=== PATIENT | female | born 1975 | race Caucasian/White ===

== ENCOUNTER 2016-08-16 20:33 | Emergency (ER) | payer OTHER | END 2016-08-16 22:43 | disposition home or self-care (01) | DX: R10.32 Left lower quadrant pain (principal); R10.2 Pelvic and perineal pain; D72.829 Elevated white blood cell count, unspecified; I10 Essential (primary) hypertension; F17.200 Nicotine dependence, unspecified, uncomplicated ==

== ENCOUNTER 2017-03-11 17:37 | Emergency (ER) | payer OTHER ==
--- NOTE | 2017-03-11 18:04 | ED Physician Documentation ---
PD HPI ABD PAIN - Stated complaint Stated Complaint: SHARP ABD PX;N/V/F - Chief complaint Chief Complaint: Abd Pain - History obtained from History obtained from: Patient - History of Present Illness Timing - onset: Other (She started to feel nauseous with upset stomach last night, cramping and bloating sensation. She has vomited twice without blood. She has had chills but no fever. She has had a lot of gas from below and feeling like she needs to have a bowel movement but never really does. No sick contacts or recent travel.) Review of Systems Ten Systems: 10 systems reviewed and negative Constitutional: reports: Chills. denies: Fever, Fatigue Nose: denies: Rhinorrhea / runny nose, Congestion Cardiac: denies: Chest pain / pressure, Palpitations Respiratory: reports: Cough. denies: Dyspnea GI: reports: Abdominal Pain, Abdominal Swelling, Nausea, Vomiting. 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 - Present Medications Home Medications: Ambulatory Orders Medication Instructions Recorded Confirmed Lisinopril 10 mg PO DAILY 04/19/16 03/11/17 amLODIPine [Norvasc] 5 mg PO ONCE 04/19/16 03/11/17 Metformin HCl [Metformin HCl ER] 500 mg PO 08/16/16 - Allergies Allergies/Adverse Reactions: Allergies Allergy/AdvReac Type Severity Reaction Status Date / Time No Known Drug Allergies Allergy Verified 03/11/17 17:50 - Social History Does the pt smoke?: Yes Smoking Status: Current every day smoker Does the pt drink ETOH?: No Does the pt have substance abuse?: No - POLST Patient has POLST: No PD ED PE NORMAL - Vitals Vital signs reviewed: Yes - General General: Alert and oriented X 3, No acute distress - HEENT HEENT: PERRL, EOMI, Pharynx benign - Neck Neck: Supple, no meningeal sign, No bony TTP - Cardiac Cardiac: RRR, No murmur - Respiratory Respiratory: No respiratory distress, Clear bilaterally - Abdomen Abdomen: Other (Hyperactive bowel tones with mild diffuse tenderness, no focal tenderness or surgical signs.) - Back Back: No CVA TTP, No spinal TTP - Derm Derm: Normal color, Warm and dry - Extremities Extremities: No edema, No calf tenderness / cord - Neuro Neuro: Alert and oriented X 3, Normal speech - Psych Psych: Normal mood, Normal affect Results - Vitals Vitals: Vital Signs - 24 hr 03/11/17 03/11/17 17:46 20:03 Temperature 36.9 C Heart Rate 99 74 Respiratory 16 18 Rate Blood Pressure 143/91 H 109/70 O2 Saturation 96 100 Oxygen O2 Source Room air - Labs Labs: Laboratory Tests 03/11/17 03/11/17 03/11/17 17:55 18:13 18:13 WBC 10.5 RBC 4.60 Hgb 13.7 Hct 40.7 MCV 88.5 MCH 29.8 MCHC 33.7 RDW 13.9 Plt Count 295 MPV 6.6 L Neut # 4.6 Lymph # 4.4 H [place] # 1.2 H Eos # 0.2 Baso # 0.1 Absolute Nucleated RBC 0.00 Nucleated RBC % 0.0 Sodium 138 Potassium 3.7 Chloride 104 Carbon Dioxide 26 Anion Gap 8.0 BUN 14 Creatinine 0.6 Estimated GFR (MDRD) 111 Glucose 101 H Calcium 9.2 Total Bilirubin 0.2 AST 22 ALT 27 Alkaline Phosphatase 66 Total Protein 7.3 Albumin 4.1 Globulin 3.2 Albumin/Globulin Ratio 1.3 Lipase 25 Urine Color YELLOW Urine Clarity CLEAR Urine pH 6.0 Ur Specific [place] 1.020 Urine Protein NEGATIVE Urine Glucose (UA) NEGATIVE Urine Ketones NEGATIVE Urine Occult Blood MODERATE H Urine Nitrite NEGATIVE Urine Bilirubin NEGATIVE Urine Urobilinogen 0.2 (NORMAL) Ur Leukocyte Esterase NEGATIVE Urine RBC 6-10 H Urine WBC 0-3 Ur Squamous Epith Cells MANY Squamous H Urine Bacteria Rare Urine Casts 0-2 Hyaline Casts Ur Microscopic Review INDICATED Urine Culture Comments NOT INDICATED Urine HCG, Qual NEGATIVE - Rads (name of study) CT A/P Radiology: EMP read contemporaneously (Negative except for right ovarian cyst) PD MEDICAL DECISION MAKING - ED course ED course: 41-year-old woman with diffuse abdominal pain and bloating, seems more like gastroenteritis than anything else. After IV fluids and medications on recheck at 7 PM her exam really had not changed but her symptoms had not improved at all either. She declined more pain medication but we will go ahead and perform some imaging. The CAT scan was negative save for ovarian cysts, she does have PCO S. She remains nontender on reexamination prior to discharge. Departure - Departure Disposition: 01 Home, Self Care Clinical Impression: Abdominal pain Qualifiers: Abdominal location: generalized Qualified Code(s): R10.84 - Generalized abdominal pain Condition: Good Record reviewed to determine appropriate education?: Yes Instructions: ED Abdominal Pain Unkn Cause Comments: Return in 12-24 hours if not better, anytime if worse or if new symptoms especially fever develop. Discharge Date/Time: 03/11/17 20:21
[2017-03-11] MEDS: KETOROLAC 30 MG/ML VIAL IVP STA (18:07)
[2017-03-11] MEDS: HYOSCYAMINE SL 0.125 MG TABLET SL STA (18:07)
[2017-03-11] MEDS: SODIUM CHLORIDE 0.9% 1,000 ML IV ONE (18:08)
[2017-03-11] MEDS ORDERED: HYOSCYAMINE SL 0.125 MG TABLET SL ONE (18:10)
[2017-03-11] MEDS ORDERED: KETOROLAC 30 MG/ML VIAL ONE (18:10)
[2017-03-11 18:20] LABS: BASOPHILS # (AUTO) 0.1 10^3/uL (0.0-0.1); BASOPHILS % (AUTO) 0.6 %; EOSINOPHILS # (AUTO) 0.2 10^3/uL (0.0-0.7); EOSINOPHILS % (AUTO) 2.2 %; HCT - HEMATOCRIT 40.7 % (37.0-47.0); HGB - HEMOGLOBIN 13.7 g/dL (12.0-16.0); LYMPHOCYTES # (AUTO) 4.4 10^3/uL (1.5-3.5); LYMPHOCYTES % (AUTO) 42.3 %; MEAN CORPUSCULAR HEMOGLOBIN 29.8 pg (27.0-31.0); MEAN CORPUSCULAR HGB CONC 33.7 g/dL (32.0-36.0); MEAN CORPUSCULAR VOLUME 88.5 fL (81.0-99.0); MEAN PLATELET VOLUME 6.6 fL (7.9-10.8); MONOCYTES # (AUTO) 1.2 10^3/uL (0.0-1.0); NEUTROPHILS # (AUTO) 4.6 10^3/uL (1.5-6.6); NEUTROPHILS % (AUTO) 43.9 %; RED CELL DISTRIBUTION WIDTH 13.9 % (12.0-15.0); UNCORRECTED WHITE BLOOD COUNT 10.5 x10^3/uL; WHITE BLOOD COUNT 10.5 x10^3/uL (4.8-10.8)
[2017-03-11 18:23] LABS: BILIRUBIN,URINE NEGATIVE (NEGATIVE)
[2017-03-11 18:24] LABS: HCG UR QUAL NEGATIVE; UA w/ MICROSCOPIC CHARGE YES
[2017-03-11 18:30] LABS: ALBUMIN/GLOBULIN RATIO 1.3 (1.0-2.2); BILIRUBIN,TOTAL 0.2 mg/dL (0.2-1.0); CALCIUM 9.2 mg/dL (8.5-10.3); CREATININE 0.6 mg/dL (0.4-1.0); POTASSIUM 3.7 mmol/L (3.5-5.0); TOTAL PROTEIN 7.3 g/dL (6.7-8.2)
[2017-03-11 18:33] LABS: UR CULTURE IF IND NOT INDICATED; WBC,URINE 0-3 /HPF (0-5)
[2017-03-11] MEDS ORDERED: IOPAMIDOL-300 100 ML VIAL ONE (19:26)
[2017-03-11] MEDS: IOPAMIDOL-300 100 ML VIAL IVP ONE (19:32)
--- NOTE | 2017-03-11 19:58 | CT Preliminary Report ---
Exam: CT ABDOMEN/PELVIS W/ IMPRESSION: 1. No evidence of bowel obstruction, fluid collection or acute inflammatory process. 2. Right ovarian 3.6 cm cyst. [facility] SITE ID: [id number]
--- NOTE | 2017-03-11 20:01 | CT Report ---
EXAM: CT ABDOMEN AND PELVIS EXAM DATE: 03/11/2017 07:44 PM. CLINICAL HISTORY: IV only, diffuse abd pain. COMPARISONS: 08/16/2016 pelvic ultrasound. TECHNIQUE: Routine helical CT imaging was performed through the abdomen and pelvis. IV contrast: Isov ue 300 100mL. Enteric contrast: No. Reconstructions: Coronal and sagittal. In accordance with CT protocol optimization, one or more of the following dose reduction techniques w ere utilized for this exam: automated exposure control, adjustment of mA and/or KV based on patient s ize, or use of iterative reconstructive technique. FINDINGS: Lung Bases: Unremarkable. Liver: Normal. No masses. Gallbladder/Bile Ducts: The gallbladder has been removed. No biliary dilatation. Spleen: Normal. Pancreas: Normal. Adrenal Glands: Normal. Kidneys: There is a 5 mm left renal hypodensity most likely representing a cyst. No suspicious renal mass or hydronephrosis. Peritoneal Cavity/Bowel: Normal. No free fluid, free air or adenopathy. No masses or acute inflammato ry process. The appendix is well visualized and normal. Pelvic Organs: There is a 3.6 x 2.3 cm right ovarian cyst containing a thin central septation. Smalle r cysts noted in the left ovary. Vasculature: No aneurysms or other significant abnormality. Bones: No significant abnormality. Other: None. IMPRESSION: 1. No evidence of bowel obstruction, fluid collection or acute inflammatory process. 2. Right ovarian 3.6 cm cyst. [facility] Referring Provider Line: [phone] SITE ID: [id number]
[2017-03-11 20:04] VITALS: BP 109/70
[2017-03-11] MEDS: HYDROcod/ACET 5/325 Prepack 6 PO STA (20:18)
[2017-03-11] MEDS: DICYCLOMINE 10 MG CAPSULE PO STA (20:18)
[2017-03-11] MEDS: ONDANSETRON ODT 4 MG Prepack 2 TL STA (20:18)
[2017-03-11] MEDS ORDERED: HYDROcod/ACET 5/325 Prepack 6 PO ONE (20:19)
[2017-03-11] MEDS ORDERED: DICYCLOMINE 10 MG CAPSULE PO ONE (20:20)
[2017-03-11] MEDS ORDERED: ONDANSETRON ODT 4 MG Prepack 2 TL ONE (20:20)
== END 2017-03-11 20:21 | disposition home or self-care (01) ==
LOC: ED 17:37
DX: R10.84 Generalized abdominal pain (principal); I10 Essential (primary) hypertension; E28.2 Polycystic ovarian syndrome; F17.200 Nicotine dependence, unspecified, uncomplicated
CPT/HCPCS: 36415; 74177; 80053; 81001; 81003; 81025; 83690; 85025; 87086; 96361; 96374; 99283; 99284

== ENCOUNTER 2017-03-14 09:49 | Emergency (ER) | payer OTHER ==
[2017-03-14 10:47] LABS: BILIRUBIN,URINE NEGATIVE (NEGATIVE)
[2017-03-14 11:01] LABS: UR CULTURE IF IND NOT INDICATED; WBC,URINE 0-3 /HPF (0-5)
[2017-03-14 12:30] LABS: BASOPHILS # (AUTO) 0.1 10^3/uL (0.0-0.1); BASOPHILS % (AUTO) 0.8 %; EOSINOPHILS # (AUTO) 0.1 10^3/uL (0.0-0.7); EOSINOPHILS % (AUTO) 1.2 %; HCT - HEMATOCRIT 39.4 % (37.0-47.0); HGB - HEMOGLOBIN 13.1 g/dL (12.0-16.0); LYMPHOCYTES # (AUTO) 4.6 10^3/uL (1.5-3.5); LYMPHOCYTES % (AUTO) 40.1 %; MEAN CORPUSCULAR HEMOGLOBIN 29.2 pg (27.0-31.0); MEAN CORPUSCULAR HGB CONC 33.2 g/dL (32.0-36.0); MEAN CORPUSCULAR VOLUME 88.2 fL (81.0-99.0); MEAN PLATELET VOLUME 6.5 fL (7.9-10.8); MONOCYTES # (AUTO) 0.6 10^3/uL (0.0-1.0); MONOCYTES % (AUTO) 5.5 %; NEUTROPHILS % (AUTO) 52.4 %; NUCLEATED RED BLOOD CELLS AUTO 0.1 /100WBC; RED BLOOD COUNT 4.46 10^6/uL (4.20-5.40); RED CELL DISTRIBUTION WIDTH 14.1 % (12.0-15.0); UNCORRECTED WHITE BLOOD COUNT 11.4 x10^3/uL; WHITE BLOOD COUNT 11.4 x10^3/uL (4.8-10.8)
[2017-03-14] MEDS ORDERED: KETOROLAC 60 MG/2 ML VIAL IVP STA (12:39)
[2017-03-14] MEDS ORDERED: ACETAMINOPHEN 1,000 MG/100 ML 100 ML IV STA (12:39)
--- NOTE | 2017-03-14 12:41 | ED Physician Documentation ---
PD HPI ABD PAIN - Stated complaint Stated Complaint: ABD PX - Chief complaint Chief Complaint: Abd Pain - History obtained from History obtained from: Patient - History of Present Illness Timing - onset: How many days ago (4) Timing - duration: Days (4) Timing - details: Gradual onset Pain level max: 7 Pain level now: 7 Quality: Aching, Pain Location: LLQ Improved by: Other (nothing) Worsened by: Moving, Palpation Associated symptoms: Nausea, Constipation (states constipated since taking the pain medications.). No: Fever, Vomiting, Hematemesis, Diarrhea, Melena, Hematochezia, Dysuria, Hematuria, Vaginal bleeding, Vaginal dc Similar symptoms before: Diagnosis (R ovarian cyst dx 2 days ago.) Recently seen: Emergency Dept (2 days ago and dx with ovarian cyst) Review of Systems Constitutional: denies: Fever, Chills Ears: denies: Ear pain Nose: denies: Rhinorrhea / runny nose, Congestion Throat: denies: Sore throat Cardiac: denies: Chest pain / pressure Respiratory: denies: Cough GI: denies: Abdominal Pain, Nausea, Vomiting, Diarrhea Skin: denies: Rash Musculoskeletal: denies: Neck pain, Back pain Neurologic: denies: Headache PD PAST MEDICAL HISTORY - Past Medical History Past Medical History: Yes Cardiovascular: Hypertension Respiratory: None Neuro: None Endocrine/Autoimmune: None - Past Surgical History Past Surgical History: Yes 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 - Present Medications Home Medications: Ambulatory Orders Medication Instructions Recorded Confirmed Lisinopril 10 mg PO DAILY 04/19/16 03/14/17 amLODIPine [Norvasc] 5 mg PO ONCE 04/19/16 03/14/17 Metformin HCl [Metformin HCl ER] 500 mg PO DAILY 08/16/16 03/14/17 Hyoscyamine Sulfate [Levsin-Sl] 0.125 mg SL Q6H PRN #10 tab.subl 03/14/17 Magnesium Citrate 296 ml PO ONCE #1 solution 03/14/17 - Allergies Allergies/Adverse Reactions: Allergies Allergy/AdvReac Type Severity Reaction Status Date / Time No Known Drug Allergies Allergy Verified 03/11/17 17:50 - Social History Does the pt smoke?: Yes Smoking Status: Current every day smoker Does the pt drink ETOH?: No Does the pt have substance abuse?: No - POLST Patient has POLST: No PD ED PE NORMAL - Vitals Vital signs reviewed: Yes - General General: Alert and oriented X 3, No acute distress, Well developed/nourished - HEENT HEENT: PERRL, Moist mucous membranes - Neck Neck: Supple, no meningeal sign - Cardiac Cardiac: RRR, Strong equal pulses - Respiratory Respiratory: No respiratory distress, Clear bilaterally - Abdomen Abdomen: Soft, Non distended, Other (mild TTP over the LLQ. no peritoneal signs. ) - Derm Derm: Warm and dry - Extremities Extremities: No edema, No calf tenderness / cord - Neuro Neuro: Alert and oriented X 3 - Psych Psych: Normal mood, Normal affect Results - Vitals Vitals: Vital Signs - 24 hr 03/14/17 03/14/17 03/14/17 09:54 10:33 12:44 Temperature 36.5 C 36.5 C Heart Rate 93 88 74 Respiratory 18 15 15 Rate Blood Pressure 137/94 H 123/76 110/72 O2 Saturation 100 100 96 03/14/17 03/14/17 15:00 15:50 Temperature 36.2 C L Heart Rate 67 76 Respiratory 14 16 Rate Blood Pressure 115/66 118/74 O2 Saturation 95 99 Oxygen O2 Source Room air - Labs Labs: Laboratory Tests 03/14/17 03/14/17 03/14/17 10:15 12:00 12:35 WBC 11.4 H RBC 4.46 Hgb 13.1 Hct 39.4 MCV 88.2 MCH 29.2 MCHC 33.2 RDW 14.1 Plt Count 354 MPV 6.5 L Neut # 6.0 Lymph # 4.6 H [place] # 0.6 Eos # 0.1 Baso # 0.1 Absolute Nucleated RBC 0.01 Nucleated RBC % 0.1 Sodium 138 Potassium 3.8 Chloride 105 Carbon Dioxide 25 Anion Gap 8.0 BUN 12 Creatinine 0.6 Estimated GFR (MDRD) 111 Glucose 83 Calcium 9.2 Total Bilirubin 0.5 AST 23 ALT 26 Alkaline Phosphatase 54 Total Protein 7.4 Albumin 4.3 Globulin 3.1 Albumin/Globulin Ratio 1.4 Lipase 19 L Urine Color YELLOW Urine Clarity CLEAR Urine pH 7.0 Ur Specific [place] 1.010 Urine Protein NEGATIVE Urine Glucose (UA) NEGATIVE Urine Ketones NEGATIVE Urine Occult Blood NEGATIVE Urine Nitrite NEGATIVE Urine Bilirubin NEGATIVE Urine Urobilinogen 0.2 (NORMAL) Ur Leukocyte Esterase NEGATIVE Urine RBC 0-5 Urine WBC 0-3 Ur Squamous Epith Cells RARE Squamous Urine Bacteria Rare Urine Culture Comments NOT INDICATED - Rads (name of study) pelvic US Radiology: Prelim report reviewed, EMP read contemporaneously, See rad report ( Bilateral ovarian cyst. 3.2 cm on the right 1.7 cm on the left. Normal uterus. No free fluid) PD MEDICAL DECISION MAKING - ED course Complexity details: reviewed old records, reviewed results, re-evaluated patient , considered differential, d/w patient ED course: Patient is a 41-year-old female who presents to the emergency department with abdominal pain and now constipation after having vomiting and diarrhea. Likely gastroenteritis, does have bilateral ovarian cysts. Her pain did not change much with IV pain medications, however Levsin seemed to help her pain significantly. Likely this is bowel cramping. Will place on medications for constipation as well as bowel relaxants. We will continue supportive care and follow-up with her doctor. She is very well-appearing, nontoxic. Afebrile. Tolerating p.o. without any difficulty in the emergency department. Declines a pelvic examination. No vaginal bleeding or discharge. Patient counseled regarding signs and symptoms for which I believe and urgent re-evaluation would be necessary. Patient with good understanding of and agreement to plan and is comfortable going home at this time This document was made in part using voice recognition software. While efforts are made to proofread this document, sound alike and grammatical errors may occur. Departure - Departure Disposition: 01 Home, Self Care Clinical Impression: Abdominal pain Qualifiers: Abdominal location: left lower quadrant Qualified Code(s): R10.32 - Left lower quadrant pain Condition: Good Instructions: ED Abdominal Pain Unkn Cause Follow-Up: Lino Nieto ARNP [Primary Care Provider] - Within 3 Days (for repeat evaluation) Prescriptions: Hyoscyamine Sulfate [Levsin-Sl] 0.125 mg SL Q6H PRN #10 tab.subl PRN Reason: Abdominal Pain Magnesium Citrate 296 ml PO ONCE #1 solution Comments: The cause of your symptoms is unclear today. Return if you worsen. The narcotics may be causing the constipation as well, use these only as needed. Discharge Date/Time: 03/14/17 15:53
[2017-03-14] MEDS ORDERED: KETOROLAC 30 MG/ML VIAL ONE (12:48)
[2017-03-14] MEDS ORDERED: ACETAMINOPHEN 1,000 MG/100 ML 100 ML IV ONE (12:48)
[2017-03-14 12:55] LABS: ALBUMIN/GLOBULIN RATIO 1.4 (1.0-2.2); BILIRUBIN,TOTAL 0.5 mg/dL (0.2-1.0); CALCIUM 9.2 mg/dL (8.5-10.3); CREATININE 0.6 mg/dL (0.4-1.0); POTASSIUM 3.8 mmol/L (3.5-5.0); TOTAL PROTEIN 7.4 g/dL (6.7-8.2)
--- NOTE | 2017-03-14 14:44 | Ultrasound Report ---
REVISED: REPORT ORIGINALLY SIGNED ON 03/15/2017@0949; ORDERS LINKED ON 2016 jll PELVIC ULTRASOUND: 03/14/2017 CLINICAL INDICATION: Pain. TECHNIQUE: Transabdominal pelvic ultrasound performed for global evaluation. Transvaginal pelvic ultrasound performed for detailed evaluation. Real-time scanning performed and static images obtained. FINDINGS: The uterus is anteverted, measuring 7.0 x 4.0 x 2.7 cm. The endometrial echo complex measures 4 mm. No focal myometrial lesion is present. The right ovary measures 4.4 x 4.4 x 4.2 cm, and contains a 3.2 cm cyst with a thin internal septation. The left ovary measures 3.6 x 2.9 x 2.6 cm, and contains a 1.7 cm cyst. No free fluid is present. IMPRESSION: BILATERAL OVARIAN CYSTS. NORMAL UTERUS. JOB #: [id number] EXT JOB #: [id number] MTDD
[2017-03-14] MEDS ORDERED: HYOSCYAMINE SL 0.125 MG TABLET SL STA (14:45)
[2017-03-14] MEDS ORDERED: HYOSCYAMINE SL 0.125 MG TABLET SL ONE (14:56)
[2017-03-14 15:56] VITALS: BP 118/74
== END 2017-03-14 15:53 | disposition home or self-care (01) ==
LOC: ED 09:49
DX: R10.32 Left lower quadrant pain (principal); N83.202 Unspecified ovarian cyst, left side; N83.201 Unspecified ovarian cyst, right side; I10 Essential (primary) hypertension; F17.200 Nicotine dependence, unspecified, uncomplicated
CPT/HCPCS: 36415; 76830; 76856; 80053; 81001; 83690; 85025; 96365; 96375; 99283; 99284; A9270; J0131; 87086

== ENCOUNTER 2017-04-29 10:55 | Emergency (ER) | payer OTHER ==
[2017-04-29 11:11] VITALS: BP 122/84
--- NOTE | 2017-04-29 12:07 | ED Physician Documentation ---
PD HPI BACK INJURY - Stated complaint Stated Complaint: R LEG PX - History obtained from History obtained from: Patient - History of Present Illness Location: Right, Lower Type of injury: Fall (she slipped on snow several days ago and landed onto buttock. Pain at lower back. Now also with having pain radiate down right thigh without numbness nor weakness. No incontinence.) Where injury occurred: Home Timing - onset: How many days ago (4) Timing - duration: Days (4) Timing - details: Abrupt onset, Still present (worse the past day) Quality: Pain, Spasm, Aching Worsened by: Moving, Palpating Associated symptoms: No: Fever, Weakness, Numbness Similar symptoms before: Has not had sx before Recently seen: Not recently seen Review of Systems Constitutional: denies: Fever, Chills GI: denies: Nausea, Vomiting, Diarrhea : denies: Dysuria, Frequency Skin: denies: Rash Neurologic: denies: Focal weakness, Numbness PD PAST MEDICAL HISTORY - Past Medical History Past Medical History: Yes Cardiovascular: Hypertension Respiratory: None Neuro: None Endocrine/Autoimmune: None - Past Surgical History Past Surgical History: Yes 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 - Present Medications Home Medications: Ambulatory Orders Medication Instructions Recorded Confirmed Lisinopril 10 mg PO DAILY 04/19/16 04/29/17 amLODIPine [Norvasc] 5 mg PO ONCE 04/19/16 04/29/17 Metformin HCl [Metformin HCl ER] 500 mg PO DAILY 08/16/16 04/29/17 Hyoscyamine Sulfate [Levsin-Sl] 0.125 mg SL Q6H PRN #10 tab.subl 03/14/17 Dexamethasone [Decadron] 4 mg PO DAILY #5 tablet 04/29/17 Docusate Sodium 100 mg PO DAILY #30 capsule 04/29/17 HYDROcod/ACETAM 5/325 [[place] 5/325] 1 tab PO Q6H PRN #20 tablet 04/29/17 Methocarbamol [Robaxin] 500 mg PO Q6H PRN #25 tablet 04/29/17 Naproxen 375 mg PO BID #20 tablet 04/29/17 - Allergies Allergies/Adverse Reactions: Allergies Allergy/AdvReac Type Severity Reaction Status Date / Time No Known Drug Allergies Allergy Verified 04/29/17 11:12 - Social History Does the pt smoke?: Yes Smoking Status: Current every day smoker Does the pt drink ETOH?: No Does the pt have substance abuse?: No - Immunizations Immunizations are current?: Yes - POLST Patient has POLST: No PD ED PE NORMAL - Vitals Vital signs reviewed: Yes - General General: Alert and oriented X 3, No acute distress, Well developed/nourished - Neck Neck: Supple, no meningeal sign, No bony TTP, No adenopathy - Cardiac Cardiac: RRR, No murmur - Respiratory Respiratory: Clear bilaterally - Abdomen Abdomen: Soft, Non tender - Back Back: No CVA TTP, Other (tender lower back to right of middle more near SI area , but also paravertebral. ) - Derm Derm: Normal color, Warm and dry - Extremities Extremities: No tenderness to palpate, Normal ROM s pain, No edema, No calf tenderness / cord - Neuro Neuro: Alert and oriented X 3, No motor deficit, No sensory deficit, Other (2+ DTRs at knees.) - Psych Psych: Normal mood, Normal affect Results - Vitals Vitals: Oxygen O2 Source Room air - Rads (name of study) lumbar CT Radiology: Prelim report reviewed (no fractures. Has moderate disc protrusion L5 -S1, so could be hurting there (vs incidental finding). ), EMP read contemporaneously PD MEDICAL DECISION MAKING - ED course Complexity details: reviewed results, considered differential, d/w patient Departure - Departure Disposition: 01 Home, Self Care Clinical Impression: Low back pain Qualifiers: Chronicity: acute Back pain laterality: right Sciatica presence: with sciatica Sciatica laterality: sciatica of right side Qualified Code(s): M54.41 - Lumbago with sciatica, right side Accidental fall Qualifiers: Encounter type: initial encounter Qualified Code(s): W19.XXXA - Unspecified fall, initial encounter Condition: Stable Record reviewed to determine appropriate education?: Yes Instructions: ED Sciatica Follow-Up: Lino Nieto ARNP [Primary Care Provider] - Prescriptions: Dexamethasone [Decadron] 4 mg PO DAILY #5 tablet Docusate Sodium 100 mg PO DAILY #30 capsule HYDROcod/ACETAM 5/325 [[place] 5/325] 1 tab PO Q6H PRN #20 tablet PRN Reason: Pain Methocarbamol [Robaxin] 500 mg PO Q6H PRN #25 tablet PRN Reason: Spasms Naproxen 375 mg PO BID #20 tablet Comments: Gentle range of motion and good stretching for the low back. Consider physical treatment such as massage and chiropractic over the next couple of days. Use naproxen twice daily for the next 10 days. Add Decadron also an anti- inflammatory daily for 5 more days. Robaxin 4 times a day if needed for spasms and stiffness. Add Tylenol or hydrocodone if needed for pain. Most commonly the nerve irritation comes from inflammation and spasming and will improve with these treatments. If it persists then follow-up with your primary care after about a week to 10 days. Subsequent treatments could include physical therapy and other medications. These would be tried first before considering any consultation with back specialist. Discharge Date/Time: 04/29/17 13:38
[2017-04-29] MEDS ORDERED: DEXAMETHASONE 10 MG/ML VIAL PO STA (12:26)
[2017-04-29] MEDS ORDERED: ACETAMINOPHEN 325 MG TABLET PO STA (12:26)
[2017-04-29] MEDS ORDERED: METHOCARBAMOL 500 MG TABLET PO STA (12:26)
--- NOTE | 2017-04-29 13:07 | CT Report ---
EXAM: CT LUMBAR SPINE WITHOUT CONTRAST EXAM DATE: 04/29/2017 12:54 PM. CLINICAL HISTORY: Persistent pain after fall. COMPARISONS: None. TECHNIQUE: Thin-section axial images were acquired of the lumbar spine from T12 to S1 without contras t. Post-processing: Coronal and sagittal reformats. Other: None. In accordance with CT protocol optimization, one or more of the following dose reduction techniques w ere utilized for this exam: automated exposure control, adjustment of mA and/or KV based on patient s ize, or use of iterative reconstructive technique. FINDINGS: Alignment: No scoliosis or spondylolisthesis. Bones: 5 lumbar vertebrae. No fractures or bone lesions. Disk Levels/Facets: T12-L1: Unremarkable. L1-L2: Unremarkable. L2-L3: Unremarkable. L3-L4: Mild diffuse disk bulge. L4-L5: Mild diffuse disk bulge. Minimal canal narrowing. L5-S1: Moderate to large left paracentral disk protrusion. Musculature: Unremarkable. Other: The visualized retroperitoneum is unremarkable. IMPRESSION: Prominent left paracentral disk protrusion. [facility] Referring Provider Line: [phone] SITE ID: [id number]
== END 2017-04-29 13:38 | disposition home or self-care (01) ==
LOC: ED 10:55
DX: M54.41 Lumbago with sciatica, right side (principal); W00.0XXA Fall on same level due to ice and snow, initial encounter; I10 Essential (primary) hypertension; F17.200 Nicotine dependence, unspecified, uncomplicated
CPT/HCPCS: 72131; 99283; A9270

== ENCOUNTER 2017-09-16 17:58 | Emergency (ER) | payer OTHER ==
[2017-09-16] MEDS ORDERED: LIDOCAINE VISCOUS 2% 15 ML UDC MM STA (18:40)
[2017-09-16] MEDS ORDERED: MAG HYDROX/AL HYDROX/SIMETH 30 ML UDC PO STA (18:40)
--- NOTE | 2017-09-16 18:43 | ED Physician Documentation ---
PD HPI ABD PAIN - Stated complaint Stated Complaint: BELLY BUTTON PX - Chief complaint Chief Complaint: Abd Pain - History obtained from History obtained from: Patient, Family (), Other (Dr Lopez called me CLIENT SOLUTIONS SPECIALIST ) - History of Present Illness Timing - onset: Other (41-year-old woman with history of cholecystectomy and C- section presents with 3 days of burning upper abdominal pain comes in waves and radiates upward. It is not associated with vomiting or changes in her bowel movements[place] notable for a white count of 17.3, hemoglobin 15.9, platelets 422. She did have a left shift. Her liver enzymes were normal. She had a chest CT done after a normal x-ray, the CT was notable for no evidence of abnormal mass or inflammatory process. She has bilateral ovarian cysts, she has known see PCO S. She also had a small fat- containing periumbilical hernia. 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 - Present Medications Home Medications: Ambulatory Orders Medication Instructions Recorded Confirmed Lisinopril 10 mg PO DAILY 04/19/16 04/29/17 amLODIPine [Norvasc] 5 mg PO ONCE 04/19/16 04/29/17 Metformin HCl [Metformin HCl ER] 500 mg PO DAILY 08/16/16 04/29/17 Oxycodone HCl/Acetaminophen 1 - 2 tab PO Q4H PRN #10 tablet 09/16/17 [Percocet 5-325 mg Tablet] - Allergies Allergies/Adverse Reactions: Allergies Allergy/AdvReac Type Severity Reaction Status Date / Time No Known Drug Allergies Allergy Verified 04/29/17 11:12 - Social History Does the pt smoke?: Yes Smoking Status: Current every day smoker Does the pt drink ETOH?: No Does the pt have substance abuse?: No - Family History Family history: reports: Non contributory - Immunizations Immunizations are current?: Yes - POLST Patient has POLST: No PD ED PE NORMAL - Vitals Vital signs reviewed: Yes - General General: Alert and oriented X 3, No acute distress - HEENT HEENT: PERRL, EOMI - Neck Neck: Supple, no meningeal sign, No bony TTP - Cardiac Cardiac: RRR, No murmur - Respiratory Respiratory: No respiratory distress, Clear bilaterally - Abdomen Abdomen: Normal bowel sounds, Soft, Other (I am able to appreciate a small umbilical hernia that is easily reducible and nontender. She has mild diffuse tenderness otherwise. No surgical signs.) - Back Back: No CVA TTP, No spinal TTP - Derm Derm: Normal color, Warm and dry - Extremities Extremities: No edema, No calf tenderness / cord - Neuro Neuro: Alert and oriented X 3, Normal speech - Psych Psych: Normal mood, Normal affect Results - Vitals Vitals: Vital Signs - 24 hr 09/16/17 09/16/17 18:02 20:03 Temperature 36.6 C 36.5 C Heart Rate 93 71 Respiratory 16 20 Rate Blood Pressure 124/75 116/73 O2 Saturation 98 99 Oxygen O2 Source Room air - EKG (time done) 1852 Rate: Rate (enter#) (78) Rhythm: NSR [place]: Normal Intervals: Normal [place] QRS: Normal Ischemia: Normal ST segments Computer interpretation: Agree with computer - Labs Labs: Laboratory Tests 09/16/17 19:15 Urine Color YELLOW Urine Clarity CLEAR Urine pH 7.0 Ur Specific [place] <=1.005 Urine Protein NEGATIVE Urine Glucose (UA) NEGATIVE Urine Ketones NEGATIVE Urine Occult Blood SMALL H Urine Nitrite NEGATIVE Urine Bilirubin NEGATIVE Urine Urobilinogen 0.2 (NORMAL) Ur Leukocyte Esterase NEGATIVE Urine RBC 0-5 Urine WBC 0-3 Ur Squamous Epith Cells MOD Squamous H Amorphous Sediment Rare Urine Bacteria None Seen Ur Microscopic Review INDICATED Urine Culture Comments NOT INDICATED Urine HCG, Qual NEGATIVE PD MEDICAL DECISION MAKING - ED course ED course: woman sent here with WBC 17k and CT coincerning for umbo hernia but clinically this is not the source of her pain in my opinion. No Help with GI cocktail. Called Dr Duarte, director of agronomy surgeon to see about 1910 Seen by the surgeon and also agrees probably not the hernia and no surgical intervention is advised. Departure - Departure Disposition: 01 Home, Self Care Clinical Impression: Abdominal pain Qualifiers: Abdominal location: generalized Qualified Code(s): R10.84 - Generalized abdominal pain Condition: Good Record reviewed to determine appropriate education?: Yes Instructions: ED Abdominal Pain Unkn Cause Prescriptions: Oxycodone HCl/Acetaminophen [Percocet 5-325 mg Tablet] 1 - 2 tab PO Q4H PRN #10 tablet PRN Reason: Pain Comments: Call your doctor to arrange a follow-up appointment, make the next available appointment. In the interim, return anytime if worse or if new symptoms develop.
[2017-09-16] MEDS ORDERED: MORPHINE 10 MG/ML VIAL IVP STA (19:07)
[2017-09-16 19:25] LABS: BILIRUBIN,URINE NEGATIVE (NEGATIVE); GLUCOSE, URINE (UA) NEGATIVE (NEGATIVE); KETONES,URINE (UA) NEGATIVE (NEGATIVE); LEUKOCYTE ESTERASE, URINE NEGATIVE (NEGATIVE); NITRITE,URINE NEGATIVE (NEGATIVE); OCCULT BLOOD,URINE SMALL (NEGATIVE); PROTEIN,URINE NEGATIVE (NEGATIVE); UROBILINOGEN,URINE 0.2 (NORMAL) E.U./dL (NORMAL)
[2017-09-16 19:28] LABS: CLARITY,URINE CLEAR (CLEAR)
[2017-09-16 19:29] LABS: HCG UR QUAL NEGATIVE
[2017-09-16] MEDS ORDERED: ACETAMINOPHEN 1,000 MG/100 ML 100 ML IV STA (19:32)
[2017-09-16 19:42] LABS: AMORPHOUS SEDIMENT,UR Rare /LPF; BACTERIA,URINE None Seen /HPF (None Seen); RBC,URINE 0-5 /HPF (0-5); SQUAMOUS EPITHELIAL CELL,UR MOD Squamous (<= Few)
[2017-09-16] MEDS ORDERED: LACTATED RINGERS 2,000 ML IV STA (21:07)
[2017-09-16] MEDS ORDERED: oxyCODONE/ACET 5/325 Prepack 4 PO STA (21:08)
[2017-09-16] MEDS ORDERED: SODIUM CHLORIDE 0.9% 2,000 ML IV ONE (21:09)
--- NOTE | 2017-09-16 21:19 | CONSULTATION NOTE ---
Referring Provider Name of Referring Provider:: MD John Leyva MD Consult Date: 09/16/17 Chief Complaint - Chief Complaint Chief Complaint: 2 day history of periumbilical pain History of Present Illness - Admitted From Admitted From:: Not admitted - History Obtained From Records Reviewed: Yes History obtained from: Patient and chart Exam Limitations: None - History of Present Illness HPI Comment/Other: This very pleasant 41-year-old female is evaluated in bed 1 at [facility]'s emergency department at the request of Dr. Arvizu as well as Dr. Lopez. She has had a 2 day history of periumbilical pain that is worsened by moving in certain positions. If she is lying flat on her back it is worse worse if she is in a modified lawnchair position it is better. Bending over in particular seems to bother her the most. When she bends over it feels like there is a pencil that is sticking her in her abdomen. Review of her chart reveals that she has been seen 3 times previously and approximately the past year for abdominal pain associated with an elevated white blood cell count in 2 out of the 3 events. Notably, she has polycystic ovarian syndrome. Recently she underwent a Pap and a pelvic and is wondering whether not the Pap and the pelvic may be related to her abdominal pain now. She was found to have a hernia at her umbilicus but is actually an incisional hernia from her cholecystectomy that was done approximately 3 years ago. Initially there was some concern as to whether not this was an incarcerated umbilical hernia but on Dr. Rosen examination as well as mind there is no evidence of incarceration. 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 - POLST Patient has POLST: No Meds/Allgy - Home Medications Home Medications: Ambulatory Orders Medication Instructions Recorded Confirmed Lisinopril 10 mg PO DAILY 04/19/16 04/29/17 amLODIPine [Norvasc] 5 mg PO ONCE 04/19/16 04/29/17 Metformin HCl [Metformin HCl ER] 500 mg PO DAILY 08/16/16 04/29/17 Oxycodone HCl/Acetaminophen 1 - 2 tab PO Q4H PRN #10 tablet 05/18/18 [Percocet 5-325 mg Tablet] - Allergies Allergies/Adverse Reactions: Allergies Allergy/AdvReac Type Severity Reaction Status Date / Time No Known Drug Allergies Allergy Verified 04/29/17 11:12 Review of Systems - Constitutional Constitutional: reports: Other (She is going through a particularly bad divorce and states that this is a very stressful time for her. She and her also have a child that they are arguing over.) - Cardiovascular Cariovascular: denies: Irregular heart rate, Palpitations, Chest pain - Respiratory Respiratory: denies: Cough, Sputum production, Wheezing - Gastrointestinal Gastrointestinal: reports: Abdominal pain (Periumbilical and sharp worsened with motion.) - Genitourinary Genitourinary: denies: Dysuria - Integumentary Integumentary: denies: Rash - Neurological Neurological: denies: General weakness, Focal weakness - Psychiatric Psychiatric: reports: Other (Again, highly stressful time for her.) Exam - Vital Signs Reviewed Vital Signs: Yes Vital Signs: Vital Signs x48h Temp Pulse Resp BP Pulse Ox 09/16/17 20:03 36.5 C 71 20 116/73 99 09/16/17 18:02 36.6 C 93 16 124/75 98 - Physical Exam General Appearance: positive: No acute distress, Anxious Eyes Bilateral: positive: No lid inflammation, Conjunctivae nml, No scleral icterus ENT: positive: Dry mucous membranes Neck: positive: Trachea midline Respiratory: positive: Chest non-tender, No respiratory distress, Breath sounds nml Cardiovascular: positive: Regular rate & rhythm Abdomen: positive: Other (On abdominal examination she has no peritoneal findings. She does have increased pain with deep palpation. This is generalized. She has no pain with light percussion. She does have bowel sounds. She has no palpable hepatosplenomegaly. The incisional hernia has no entrapped tissue within it. There is no surrounding erythema. There is no surrounding ecchymosis.) Extremities: positive: Non-tender, Nml appearance Neurologic/Psychiatric: positive: Oriented x3 Conclusion/Plan - Diagnosis Diagnosis: Abdominal pain likely secondary to her polycystic ovarian syndrome. Currently no cause that is surgically correctable. Incisional hernia to be repaired if and when it becomes symptomatic. - Plan Plan: I explained that a small amount of fluid from her ovarian cyst may cause significant pain that is hard to characterize. There was no fluid seen on the CT scan but the small amount of fluid that I am speaking of can still cause significant discomfort. The patient has had previous visits to the emergency department for several type pain which she acknowledges. In each case they were self-limited and resolved without intervention. For now I recommend that she be hydrated with 2 L of normal saline or lactated Ringer's as I think her elevated hemoglobin and white count reflect more dehydration rather than a significant process. The patient was instructed to contact me if she has a temperature over 101.5 Fahrenheit, tachycardia over 100 bpm, low blood pressure (she has a blood pressure cuff at home), or her symptoms do not resolve over the next 3-4 days. I also asked that she contact me if she has any further surgical questions and/or concerns. I explained it is highly unlikely that her Pap and pelvic cause were exacerbated the symptoms. Again, with regards to her incisional hernia elective repair if and when she wishes to have it done. The likelihood of incarceration or strangulation is low. Follow-up either on the phone with me or in person in 7-10 days 45 minutes of [id number] time spent with the patient majority which was spent in discussion Ronal disclaimer: This document was created in part using voice recognition technology. Because of the inherent limitations of the system ([employer] user manual states that the licensee understands that speech recognition is a statistical process and that recognition errors are inherent in the process), occasional same sounding word substitutions and grammatical errors do occur and persist despite proofreading. Please read this document for context. - Lab Results Lab results reviewed: Yes - Diagnostic Imaging Results Diagnostic Imaging Results: positive: Final report reviewed, Read independently Diagnostic Imaging Results Comments: Outside CT did not show any surgically correctable cause for her pain. Incisional hernia is present but not the cause.
[2017-09-16 21:47] VITALS: BP 122/72
== END 2017-09-16 22:18 | disposition home or self-care (01) ==
LOC: ED 17:58
DX: R10.84 Generalized abdominal pain (principal); K42.9 Umbilical hernia without obstruction or gangrene; E28.2 Polycystic ovarian syndrome; I10 Essential (primary) hypertension; F17.200 Nicotine dependence, unspecified, uncomplicated
CPT/HCPCS: 81001; 81025; 93005; 96361; 96365; 96375; 99283; 99284; A9270; J0131; J7120; 81003; 87086

== ENCOUNTER 2017-09-19 12:28 | Emergency (ER) | payer OTHER ==
[2017-09-19] MEDS ORDERED: KETOROLAC 60 MG/2 ML VIAL IVP STA (12:56)
[2017-09-19] MEDS ORDERED: SODIUM CHLORIDE 0.9% 1,000 ML IV ONE (12:56)
[2017-09-19] MEDS ORDERED: LORazepam 2 MG/ML VIAL IVP STA (12:57)
[2017-09-19 13:18] LABS: BASOPHILS # (AUTO) 0.1 10^3/uL (0.0-0.1); BASOPHILS % (AUTO) 0.5 %; EOSINOPHILS # (AUTO) 0.1 10^3/uL (0.0-0.7); EOSINOPHILS % (AUTO) 0.9 %; HGB - HEMOGLOBIN 14.3 g/dL (12.0-16.0); LYMPHOCYTES # (AUTO) 3.7 10^3/uL (1.5-3.5); LYMPHOCYTES % (AUTO) 28.4 %; MEAN CORPUSCULAR HEMOGLOBIN 29.9 pg (27.0-31.0); MEAN CORPUSCULAR VOLUME 90.8 fL (81.0-99.0); MONOCYTES # (AUTO) 0.6 10^3/uL (0.0-1.0); MONOCYTES % (AUTO) 4.9 %; NEUTROPHILS # (AUTO) 8.5 10^3/uL (1.5-6.6); NEUTROPHILS % (AUTO) 65.3 %; PLT - PLATELET COUNT 345 10^3/uL (130-450); RED BLOOD COUNT 4.79 10^6/uL (4.20-5.40); RED CELL DISTRIBUTION WIDTH 14.6 % (12.0-15.0)
[2017-09-19 13:22] LABS: BILIRUBIN,URINE NEGATIVE (NEGATIVE); GLUCOSE, URINE (UA) NEGATIVE (NEGATIVE); KETONES,URINE (UA) NEGATIVE (NEGATIVE); LEUKOCYTE ESTERASE, URINE NEGATIVE (NEGATIVE); NITRITE,URINE NEGATIVE (NEGATIVE); OCCULT BLOOD,URINE SMALL (NEGATIVE); PH,URINE 6.5 PH (5.0-7.5); PROTEIN,URINE NEGATIVE (NEGATIVE); UROBILINOGEN,URINE 0.2 (NORMAL) E.U./dL (NORMAL)
[2017-09-19 13:25] LABS: CLARITY,URINE CLEAR (CLEAR)
[2017-09-19 13:30] LABS: ALBUMIN 4.1 g/dL (3.2-5.5); ALBUMIN/GLOBULIN RATIO 1.2 (1.0-2.2); BILIRUBIN,TOTAL 0.5 mg/dL (0.2-1.0); CREATININE 0.7 mg/dL (0.4-1.0); TOTAL PROTEIN 7.4 g/dL (6.7-8.2)
[2017-09-19 13:45] LABS: BACTERIA,URINE Rare /HPF (None Seen); RBC,URINE 0-5 /HPF (0-5); SQUAMOUS EPITHELIAL CELL,UR FEW Squamous (<= Few)
--- NOTE | 2017-09-19 14:26 | ED Physician Documentation ---
History of Present Illness - Stated complaint Stated Complaint: ABD PX/SOA - Chief complaint Chief Complaint: Abd Pain - History obtained from History obtained from: Patient - History of Present Illness Timing: How many days ago (several) Pain level max: 9 Pain level now: 9 - Additonal information Additional information: Patient is a 41-year-old female who presents to the emergency department with continued abdominal pain today. This started several days ago when she was seen [place] [facility] [employer] [place] and had a CT scan that showed a small incarcerated fat- containing umbilical hernia. Was then seen here in the emergency department by Dr. Arvizu and Dr. Duarte, general surgery. Her pain was well controlled at that time and they did not feel that it was related to the hernia. She states she had been doing well over the past few days but started to have pain again today. Came in for repeat evaluation. No fevers. No diarrhea. No constipation. Does have a history of ovarian cysts. Has not been lightheaded or dizzy. No chest pain. 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 - Present Medications Home Medications: Ambulatory Orders Medication Instructions Recorded Confirmed Lisinopril 10 mg PO DAILY 04/19/16 04/29/17 amLODIPine [Norvasc] 5 mg PO ONCE 04/19/16 04/29/17 Metformin HCl [Metformin HCl ER] 500 mg PO DAILY 08/16/16 04/29/17 Oxycodone HCl/Acetaminophen 1 - 2 tab PO Q4H PRN #10 tablet 09/16/17 [Percocet 5-325 mg Tablet] LORazepam [Ativan] 0.5 mg PO Q6H PRN #10 tablet 09/19/17 Meloxicam [Mobic] 7.5 mg PO BID PRN #20 tablet 09/19/17 - Allergies Allergies/Adverse Reactions: Allergies Allergy/AdvReac Type Severity Reaction Status Date / Time No Known Drug Allergies Allergy Verified 09/19/17 12:51 - Social History Does the pt smoke?: Yes Smoking Status: Current every day smoker Does the pt drink ETOH?: No Does the pt have substance abuse?: No - Immunizations Immunizations are current?: Yes - POLST Patient has POLST: No PD ED PE NORMAL - Vitals Vital signs reviewed: Yes - General General: Alert and oriented X 3, No acute distress, Well developed/nourished - HEENT HEENT: PERRL, Moist mucous membranes - Neck Neck: Supple, no meningeal sign - Cardiac Cardiac: RRR, Strong equal pulses - Respiratory Respiratory: No respiratory distress, Clear bilaterally - Abdomen Abdomen: Soft, Non distended, Other (Mild diffuse tenderness palpation without peritoneal signs) - Back Back: No CVA TTP, No spinal TTP - Derm Derm: Warm and dry - Extremities Extremities: No edema, No calf tenderness / cord - Neuro Neuro: Alert and oriented X 3 - Psych Psych: Normal mood, Normal affect Results - Vitals Vitals: Oxygen O2 Source Room air - Labs Labs: Laboratory Tests 09/19/17 09/19/17 09/19/17 12:40 12:40 13:12 WBC 13.0 H RBC 4.79 Hgb 14.3 Hct 43.5 MCV 90.8 MCH 29.9 MCHC 33.0 RDW 14.6 Plt Count 345 MPV 7.0 L Neut # 8.5 H Lymph # 3.[address] # 0.6 Eos # 0.1 Baso # 0.1 Absolute Nucleated RBC 0.00 Nucleated RBC % 0.0 Sodium 138 Potassium 3.7 Chloride 100 L Carbon Dioxide 29 Anion Gap 9.0 BUN 14 Creatinine 0.7 Estimated GFR (MDRD) 93 Glucose 116 H Lactic Acid Calcium 9.0 Total Bilirubin 0.5 AST 22 ALT 16 Alkaline Phosphatase 51 Total Protein 7.4 Albumin 4.1 Globulin 3.3 Albumin/Globulin Ratio 1.2 Lipase 23 Urine Color YELLOW Urine Clarity CLEAR Urine pH 6.5 Ur Specific [place] 1.020 Urine Protein NEGATIVE Urine Glucose (UA) NEGATIVE Urine Ketones NEGATIVE Urine Occult Blood SMALL H Urine Nitrite NEGATIVE Urine Bilirubin NEGATIVE Urine Urobilinogen 0.2 (NORMAL) Ur Leukocyte Esterase NEGATIVE Urine RBC 0-5 Urine WBC 0-3 Ur Squamous Epith Cells FEW Squamous Urine Bacteria Rare Ur Microscopic Review INDICATED Urine Culture Comments NOT INDICATED 09/19/17 13:12 WBC RBC Hgb Hct MCV MCH MCHC RDW Plt Count MPV Neut # Lymph # [place] # Eos # Baso # Absolute Nucleated RBC Nucleated RBC % Sodium Potassium Chloride Carbon Dioxide Anion Gap BUN Creatinine Estimated GFR (MDRD) Glucose Lactic Acid 2.0 Calcium Total Bilirubin AST ALT Alkaline Phosphatase Total Protein Albumin Globulin Albumin/Globulin Ratio Lipase Urine Color Urine Clarity Urine pH Ur Specific [place] Urine Protein Urine Glucose (UA) Urine Ketones Urine Occult Blood Urine Nitrite Urine Bilirubin Urine Urobilinogen Ur Leukocyte Esterase Urine RBC Urine WBC Ur Squamous Epith Cells Urine Bacteria Ur Microscopic Review Urine Culture Comments PD MEDICAL DECISION MAKING - ED course Complexity details: reviewed old records, reviewed results, re-evaluated patient , considered differential, d/w patient, d/w etl consultant ED course: Patient is a 41-year-old female who presents to the emergency department with recurrent abdominal pain. Feels much better after Toradol and Ativan. Sleeping comfortably in the emergency department. Leukocytosis has decreased. No acute lab abnormalities. Given her benign abdominal exam, did not feel it is clinically warranted to reimage her at this time. I discussed the case with Dr. Duarte, general surgery on-call who came and evaluated the patient in the emergency department as well. Recommend that she follow-up with gynecology and he will follow-up with her as well. Patient is comfortable with this plan. Patient counseled regarding signs and symptoms for which I believe and urgent re -evaluation would be necessary. Patient with good understanding of and agreement to plan and is comfortable going home at this time This document was made in part using voice recognition software. While efforts are made to proofread this document, sound alike and grammatical errors may occur. Departure - Departure Disposition: 01 Home, Self Care Clinical Impression: Abdominal pain Qualifiers: Abdominal location: generalized Qualified Code(s): R10.84 - Generalized abdominal pain Condition: Good Instructions: ED Abdominal Pain Unkn Cause Follow-Up: Lino Nieto ARNP [Primary Care Provider] - Prescriptions: LORazepam [Ativan] 0.5 mg PO Q6H PRN #10 tablet PRN Reason: Abdominal Pain Meloxicam [Mobic] 7.5 mg PO BID PRN #20 tablet PRN Reason: Pain Comments: Return if you worsen. Do not drive while taking ativan. Follow up with gynecology and Dr. Duarte as scheduled. Discharge Date/Time: 09/19/17 14:46
[2017-09-19 14:46] VITALS: BP 113/76
== END 2017-09-19 14:46 | disposition home or self-care (01) ==
LOC: ED 12:28
DX: R10.84 Generalized abdominal pain (principal); I10 Essential (primary) hypertension; F17.200 Nicotine dependence, unspecified, uncomplicated
CPT/HCPCS: 36415; 80053; 81001; 83605; 83690; 85025; 96374; 96375; 99283; 99284; J2060; 81003; 87086

== ENCOUNTER 2018-05-01 06:20 | Emergency (ER) | payer OTHER ==
[2018-05-01] MEDS ORDERED: ERYTHROMYCIN OPHTH OINT 1 GM TUBE LEFTEYE STA (06:42)
[2018-05-01] MEDS ORDERED: AZITHROMYCIN 250 MG TABLET PO STA (06:42)
[2018-05-01] MEDS ORDERED: OXYMETAZOLINE NASAL SPRAY NAS STA (06:42)
--- NOTE | 2018-05-01 06:45 | ED Physician Documentation ---
History of Present Illness - Stated complaint Stated Complaint: EYE SWOLLEN - Chief complaint Chief Complaint: Heent - Additonal information Additional information: hx from pt 42 f s/p hyst recent cough productive of green sputum after recent plane travel her ears wont clear and she has l eye dc as well no leg swelling was sick before travel no NVD to suggest influenza Review of Systems Constitutional: denies: Fever Eyes: reports: Discharge Ears: reports: Ear pain Nose: reports: Congestion Respiratory: reports: Cough GI: denies: Vomiting, Diarrhea : reports: Hysterectomy Musculoskeletal: denies: Extremity swelling PD PAST MEDICAL HISTORY - Past Medical History Cardiovascular: Hypertension Respiratory: None Endocrine/Autoimmune: None - Past Surgical History Past Surgical History: Yes 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 - Present Medications Home Medications: Ambulatory Orders Medication Instructions Recorded Confirmed Lisinopril 10 mg PO DAILY 04/19/16 04/29/17 amLODIPine [Norvasc] 5 mg PO ONCE 04/19/16 04/29/17 Metformin HCl [Metformin HCl ER] 500 mg PO DAILY 08/16/16 04/29/17 Oxycodone HCl/Acetaminophen 1 - 2 tab PO Q4H PRN #10 tablet 09/16/17 [Percocet 5-325 mg Tablet] LORazepam [Ativan] 0.5 mg PO Q6H PRN #10 tablet 09/19/17 Meloxicam [Mobic] 7.5 mg PO BID PRN #20 tablet 09/19/17 Azithromycin [Zithromax] 250 mg PO DAILY #4 tablet 05/01/18 Benzonatate [Tessalon Perle] 100 mg PO TID PRN #20 capsule 05/01/18 Erythromycin Base [Erythromycin 1 applic OP Q4H #1 tube 05/01/18 Ophthalmic Ointment] guaiFENesin/DEXTROMETHORPHAN 10 ml PO Q6H PRN #120 ml 05/01/18 [Robitussin Dm] - Allergies Allergies/Adverse Reactions: Allergies Allergy/AdvReac Type Severity Reaction Status Date / Time No Known Drug Allergies Allergy Verified 05/01/18 06:25 - Social History Does the pt smoke?: Yes Smoking Status: Current every day smoker Does the pt drink ETOH?: No Does the pt have substance abuse?: No - Immunizations Immunizations are current?: Yes - POLST Patient has POLST: No PD ED PE NORMAL - Vitals Vital signs reviewed: Yes - General General: Alert and oriented X 3 - HEENT HEENT: PERRL (L eye with purlent dc and injection). No: Ears normal (L TM tautly retracted) - Cardiac Cardiac: RRR - Respiratory Respiratory: No respiratory distress, Other (ronchi RUL) - Extremities Extremities: No edema, No calf tenderness / cord - Neuro Neuro: Alert and oriented X 3 Results - Vitals Vitals: Vital Signs - 24 hr 05/01/18 06:20 Temperature 36.0 C L Heart Rate 105 H Respiratory 18 Rate Blood Pressure 135/86 H O2 Saturation 100 Oxygen O2 Source Room air PD MEDICAL DECISION MAKING - ED course ED course: on exam sounds like pt has pna we discussed and decided to tx for pna and forgo expense and radiation of a CXR Departure - Departure Disposition: 01 Home, Self Care Clinical Impression: Conjunctivitis Qualifiers: Conjunctivitis type: acute Acute conjunctivitis type: unspecified Laterality: left Qualified Code(s): H10.32 - Unspecified acute conjunctivitis, left eye Pneumonia Qualifiers: Pneumonia type: due to unspecified organism Laterality: right Lung location: upper lobe of lung Qualified Code(s): J18.1 - Lobar pneumonia, unspecified organism Condition: Good Instructions: ED Conjunctivitis Nonspecific, ED Pneumonia Adult Prescriptions: Azithromycin [Zithromax] 250 mg PO DAILY #4 tablet Benzonatate [Tessalon [place]le] 100 mg PO TID PRN #20 capsule PRN Reason: Cough Erythromycin Base [Erythromycin Ophthalmic Ointment] 1 applic OP Q4H #1 tube guaiFENesin/DEXTROMETHORPHAN [Robitussin Dm] 10 ml PO Q6H PRN #120 ml PRN Reason: Cough Comments: Continue the afrin 2 squirts twice a day for up to 3 days until the ears clear Tessalon and robitussin DM to ease the cough. Zithromax for 4 more days (next dose tomorrow) And the antibiotic ointment every 4 hr while awake for a week
[2018-05-01 06:50] VITALS: BP 135/86
== END 2018-05-01 07:19 | disposition home or self-care (01) ==
LOC: ED 06:20
DX: J18.1 Lobar pneumonia, unspecified organism (principal); H10.32 Unspecified acute conjunctivitis, left eye; H92.02 Otalgia, left ear; F17.200 Nicotine dependence, unspecified, uncomplicated; I10 Essential (primary) hypertension
CPT/HCPCS: 99283; A9270; J3490